=== PATIENT | male | born 2000 | race Caucasian/White ===

== ENCOUNTER 2019-04-07 10:39 | Emergency (ER) | payer MEDICAID ==
[~2019-04-07] VITALS: Ht 170.2 cm; Wt 79.8 kg
[2019-04-07 11:04] VITALS: Ht 170.2 cm; Wt 79.8 kg
[2019-04-07 15:17] VITALS: BP 156/89
== END 2019-04-07 16:01 | disposition home or self-care (01) ==
LOC: ED 10:39
DX: S39.012A Strain of muscle, fascia and tendon of lower back, initial encounter (principal); S29.012A Strain of muscle and tendon of back wall of thorax, initial encounter; M41.9 Scoliosis, unspecified; V49.49XA Driver injured in collision with other motor vehicles in traffic accident, initial encounter; Y93.I9 Activity, other involving external motion; Y92.413 State road as the place of occurrence of the external cause; Y99.8 Other external cause status
CPT/HCPCS: 72072; J1885; J3010; Q0162

== ENCOUNTER 2020-01-14 16:19 | Emergency (ER) | payer SELFPAY ==
[~2020-01-14] VITALS: Ht 170.2 cm; Wt 80.7 kg
[2020-01-14 16:25] VITALS: Ht 170.2 cm; Wt 80.7 kg
[2020-01-14 17:27] VITALS: BP 143/71
== END 2020-01-14 17:20 | disposition home or self-care (01) ==
LOC: ED 16:19
DX: R11.2 Nausea with vomiting, unspecified (principal); R19.7 Diarrhea, unspecified; J06.9 Acute upper respiratory infection, unspecified
CPT/HCPCS: Q0092; Q0162